=== PATIENT | male | born 1990 | race Caucasian/White ===

== ENCOUNTER 2017-09-29 16:51 | Emergency (ER) | payer OTHER ==
[2017-09-29 17:37] VITALS: TEMP 97.2; BMI 21.4
[2017-09-29] MEDS ORDERED: SODIUM CHLORIDE 1,000 ML IV STA ×2 (17:52→19:21)
--- NOTE | 2017-09-29 18:09 | PDOC ---
History of Present Illness - General History Source: Patient, Family Exam Limitations: No Limitations - History of Present Illness Initial Comments: 09/29/17 18:41 The patient is a 27 year old male with past medical history of ADHD and depression who presents to the ED with complaints of lightheadedness for two days. The patient states his lightheadedness is constant but is much worse when he sits or stands. He reports he is very fatigued and his urine is concentrated. He reports that his apartment is very warm and he went to walk to [employer] this evening, however when he got there he had a pre-syncopal episode and nearly lost consciousness. The patient denies any headache or focal weakness. He denies any fever, chills, nausea, vomiting, diarrhea, cough, SOB, CP, or urinary symptoms. Past surgical hx: None Allergies: Sulfa Social hx: Denies any drug or alcohol use. Reports occasional Vape usage. <Candie Oconnor - Last Filed: 09/29/17 18:52> - General History Source: Patient, Family Exam Limitations: No Limitations <Howard Ray - Last Filed: 09/29/17 19:51> - General Chief Complaint: Lightheaded Stated Complaint: ABD/DIZZY Time Seen by Provider: 09/29/17 17:27 Past History <Candie Oconnor - Last Filed: 09/29/17 18:52> - Past Medical History COPD: No GI Disorders: Yes (ACID REFLUX) - Surgical History Abdominal Surgery: Yes (HERNIA REPAIR) - Suicide/Smoking/Psychosocial Hx Smoking Status: Yes Smoking History: Never smoked Have you smoked in the past 12 months: No Number of Cigarettes Smoked Daily: 0 Information on smoking cessation initiated: No Hx Alcohol Use: No Drug/Substance Use Hx: No Substance Use Type: None <Howard Ray - Last Filed: 09/29/17 19:51> - Past Medical History Allergies/Adverse Reactions: Allergies Allergy/AdvReac Type Severity Reaction Status Date / Time Sulfa (Sulfonamide Allergy Verified 09/29/17 17:37 Antibiotics) [Sulfa(Sulfonamide Antibiotics)] Home Medications: Ambulatory Orders Aripiprazole [Abilify] 20 mg PO DAILY 05/16/12 Escitalopram Oxalate [Lexapro] 20 mg PO DAILY 05/16/12 Methylphenidate HCl [Concerta] 36 mg PO BID 05/16/12 Naproxen Sodium [Anaprox Ds] 550 mg PO BID PRN #20 tablet 02/24/13 Omeprazole [Prilosec (RX)] 20 mg PO DAILY 02/24/13 Tizanidine HCl [Zanaflex] 2 mg PO TID PRN #20 tablet 02/24/13 Review of Systems - Review of Systems Able to Perform ROS?: Yes Comments:: 09/29/17 18:42 GENERAL/CONSTITUTIONAL: Present: fatigue No fever or chills. HEAD, EYES, EARS, NOSE AND THROAT: No change in vision. No ear pain or discharge. No sore throat. CARDIOVASCULAR: No chest pain or shortness of breath. RESPIRATORY: No cough, wheezing, or hemoptysis. GASTROINTESTINAL: No nausea, vomiting, diarrhea or constipation. GENITOURINARY: Present: concentrated urine No dysuria, frequency. MUSCULOSKELETAL: No joint or muscle swelling or pain. No neck or back pain. SKIN: No rash NEUROLOGIC: Present: lightheadedness No headache, vertigo, loss of consciousness, or change in strength/sensation. ENDOCRINE: No increased thirst. No abnormal weight change. HEMATOLOGIC/LYMPHATIC: No anemia, easy bleeding, or history of blood clots. ALLERGIC/IMMUNOLOGIC: No hives or skin allergy. All Other Systems: Reviewed and Negative <Candie Oconnor - Last Filed: 09/29/17 18:52> *Physical Exam - Vital Signs Last Vital Signs Temp Pulse Resp BP Pulse Ox 97.2 F L 75 15 90/61 100 09/29/17 16:55 09/29/17 16:55 09/29/17 16:55 09/29/17 16:55 09/29/17 16:55 - Physical Exam Comments: 09/29/17 18:43 GENERAL: Awake, alert, and fully oriented, in no acute distress HEAD: No signs of trauma EYES: PERRLA, EOMI, sclera anicteric, conjunctiva clear ENT: Dry mucous membranes, Auricles normal inspection, hearing grossly normal, nares patent, oropharynx clear without exudates. NECK: Normal ROM, supple, no lymphadenopathy, JVD, or masses LUNGS: Breath sounds equal, clear to auscultation bilaterally. No wheezes, and no crackles HEART: Regular rate and rhythm, normal S1 and S2, no murmurs, rubs or gallops ABDOMEN: Soft, nontender, normoactive bowel sounds. No guarding, no rebound. No masses EXTREMITIES: Normal range of motion, no edema. No clubbing or cyanosis. No cords, erythema, or tenderness NEUROLOGICAL: Cranial nerves II through XII grossly intact. Normal speech, normal gait SKIN: Warm, Dry, normal turgor, no rashes or lesions noted. <TimmylizzyCandie - Last Filed: 09/29/17 18:52> - Vital Signs Last Vital Signs Temp Pulse Resp BP Pulse Ox 97.2 F L 75 15 90/61 100 09/29/17 16:55 09/29/17 16:55 09/29/17 16:55 09/29/17 16:55 09/29/17 16:55 <Howard Ray - Last Filed: 09/29/17 19:51> Heart Score/ECG Review #1 ECG reviewed & interpreted by me at: 18:00 09/29/17 18:05 NSR 82, no std/rayne, TWI III, normal axis, normal intervals, QTC 420 msec <Howard Ray - Last Filed: 09/29/17 19:51> ED Treatment Course - LABORATORY CBC & Chemistry Diagram: 09/29/17 18:10 09/29/17 18:10 - ADDITIONAL ORDERS Additional order review: 09/29/17 09/29/17 18:10 17:35 RBC 5.21 Cancelled MCV 82.0 Cancelled MCHC 34.6 Cancelled RDW 13.4 Cancelled MPV 8.4 Cancelled Neutrophils % 82.1 Cancelled Lymphocytes % 8.7 Cancelled Monocytes % 8.8 Cancelled Eosinophils % 0.0 Cancelled Basophils % 0.4 Cancelled - Medications Given in the ED: ED Medications Discontinued Medications Generic Name Dose Route Start Last Admin Trade Name Freq PRN Reason Stop Dose Admin Sodium Chloride 1,000 mls @ 2,000 mls/hr 09/29/17 17:52 09/29/17 18:20 Normal Saline - IV 09/29/17 18:21 2,000 mls/hr ASDIR STA Administration <maidalizzyCandie - Last Filed: 09/29/17 18:52> - LABORATORY CBC & Chemistry Diagram: 09/29/17 18:10 09/29/17 18:10 - ADDITIONAL ORDERS Additional order review: 09/29/17 17:35 RBC Cancelled MCV Cancelled MCHC Cancelled RDW Cancelled MPV Cancelled Neutrophils % Cancelled Lymphocytes % Cancelled Monocytes % Cancelled Eosinophils % Cancelled Basophils % Cancelled <Howard Ray - Last Filed: 09/29/17 19:51> Medical Decision Making - Medical Decision Making 09/29/17 19:46 A portion of this note was documented by scribe services under my direction. I have reviewed the details of the note, within reason, and agree with the documentation with the following case summary and management plan written by me. Patient treated in the ED. Nursing notes are reviewed and incorporated into the medical decision-making. Vital signs reviewed. Peripheral IV access obtained by the nurse, laboratory studies are drawn and sent, reviewed and interpreted by myself. Vital Signs Temp Pulse Resp BP Pulse Ox 97.2 F L 75 15 90/61 100 09/29/17 16:55 09/29/17 16:55 09/29/17 16:55 09/29/17 16:55 09/29/17 16:55 27-year-old male with history of chronic neck pain with neuropathy and gabapentin presents with lightheadedness. Patient reports that he was well yesterday morning. Yesterday evening, developed lightheadedness worsened with standing up and better with lying down. States that he feels dehydrated. Thinks he is drinking enough fluids but denies recent illnesses, fevers, chills, cough , vomiting, diarrhea. Denies dysuria. Denies any drug use. Patient never syncopized or loss consciousness. I suspect this is likely orthostatic given the patient feels lightheaded standing up. Never had chest pain shortness of breath. EKG is reassuring blood work is reassuring. Patient was given 2 L IV fluids with significant improvement of symptoms. She'll go home with her dad. Discharge diagnosis: Dehydration I discussed the physical exam findings, ancillary test results and final diagnoses with the patient. I answered all of the patient's questions. The patient was satisfied with the care received and felt comfortable with the discharge plan and treatment plan. The patient will call their primary care physician within 24 hours to arrange follow-up and will return to the Emergency Department with any new, persistant or worsening symptoms. <Howard Ray - Last Filed: 09/29/17 19:51> *DC/Admit/Observation/Transfer - Attestations Scribe Attestion: 09/29/17 18:43 Documentation prepared by Candie Oconnor, acting as medical resident for Howard Ray MD. <Candie Oconnor - Last Filed: 09/29/17 18:52> - Discharge Dispostion Admit: No <Howard Ray - Last Filed: 09/29/17 19:51> Diagnosis at time of Disposition: Dehydration - Discharge Dispostion Disposition: HOME Condition at time of disposition: Improved - Referrals Referrals: Jeffery Baig MD [Primary Care Provider] - - Patient Instructions Printed Discharge Instructions: DI for Dehydration -- Adult Additional Instructions: Drink plenty of fluids and rest. Follow up with your doctor. - Post Discharge Activity Forms/Work/School Notes: Back to Work
[2017-09-29 18:23] LABS: BASOPHIL 0.4 % (0-2.0); MCH 28.4 pg (25.7-33.7); MCHC 34.6 g/dl (32.0-35.9); MEAN PLT VOLUME 8.4 fl (7.5-11.1); NEUTROPHILS 82.1 % (42.8-82.8); PLATELET COUNT 140 K/MM3 (134-434); RDW 13.4 % (11.9-15.9); WHITE BLOOD COUNT 6.5 K/mm3 (4.0-10.0)
[2017-09-29 18:50] LABS: ALBUMIN 3.6 g/dl (3.4-5.0); ANION GAP 9 (8-16); BILIRUBIN,TOTAL 0.6 mg/dL (0.2-1.0); CALCIUM 7.9 mg/dL (8.5-10.1); CO2 26 mmol/L (21-32); GLUCOSE,RANDOM 103 mg/dL (74-106); SGPT/ALT 30 U/L (12-78); TOT PROT 7.2 g/dl (6.4-8.2)
[2017-09-29 18:53] LABS: ALK PHOS 48 U/L (45-117); CPK 81 IU/L (39-308); TROPONIN I < 0.02 ng/ml (0.00-0.05)
[2017-09-29 18:55] LABS: MAGNESIUM 1.8 mg/dL (1.8-2.4); SGOT/AST 19 U/L (15-37)
[2017-09-29 20:06] VITALS: BP 138/83; PULSE 78
--- NOTE | 2017-10-01 14:38 | EKG ---
Test Reason : Blood Pressure : / mmHG Vent. Rate : 082 BPM Atrial Rate : 082 BPM P-R Int : 168 ms QRS Dur : 104 ms QT Int : 360 ms P-R-T Axes : 030 011 016 degrees QTc Int : 420 ms NORMAL SINUS RHYTHM POSSIBLE LEFT ATRIAL ENLARGEMENT BORDERLINE ECG NO PREVIOUS ECGS AVAILABLE Confirmed by MARI NERI MD ([id number]) on 10/01/2017 2:38:40 PM Referred By: Confirmed By:MARI NERI MD
== END 2017-09-29 20:06 | disposition home or self-care (01) ==
LOC: JER 16:51
PROC: 3E0337Z Introduction of Electrolytic and Water Balance Substance into Peripheral Vein, Percutaneous Approach (ICD-10-PCS; principal; 2017-09-29)
DX: E86.0 Dehydration (principal); F90.9 Attention-deficit hyperactivity disorder, unspecified type; F32.9 Major depressive disorder, single episode, unspecified; K21.9 Gastro-esophageal reflux disease without esophagitis
CPT/HCPCS: 36415; 80053; 82550; 83735; 84443; 84484; 85025; 93005; 93010; 96360; 96361; 99283-25

== ENCOUNTER 2017-11-19 19:06 | Emergency (ER) | payer OTHER ==
--- NOTE | 2017-11-19 19:17 | PDOC ---
History of Present Illness - General History Source: Patient Exam Limitations: No Limitations - History of Present Illness Initial Comments: 11/19/17 20:50 The patient is a 27 year old male with no significant past medical history who presents to the ED with complaints of neck pain since earlier today. The patient reports a sudden onset of left sided neck pain when he woke up with morning. He states his neck pain radiates down his left shoulder, left arm, and onto his left hand. Patient also reports a tingling like sensation on his left fingertips. Patient has a hx of knee injury (10 years ago) and nerve damage secondary to playing football in high school. Patient is currently prescribed gabapentin for right sided neck pain, thought to be neurogenic origin, from PCP. Denies fever or chills. Denies chest pain or shortness of breath. Denies abdominal pain, nausea, vomiting, or diarrhea. Denies headache. Denies any other symptoms. PCP: Dr. Huber <Raghavendra Granda - Last Filed: 11/19/17 21:07> <Lorena Pierre - Last Filed: 11/20/17 03:14> - General Chief Complaint: Pain, Acute Stated Complaint: WOKE UP WITH LEFT ARM PAIN, NECK PAIN Time Seen by Provider: 11/19/17 19:14 Past History <Raghavendra Granda - Last Filed: 11/19/17 21:07> - Past Medical History COPD: No GI Disorders: Yes (ACID REFLUX) - Surgical History Abdominal Surgery: Yes (HERNIA REPAIR) - Suicide/Smoking/Psychosocial Hx Smoking Status: Yes Smoking History: Never smoked Have you smoked in the past 12 months: No Number of Cigarettes Smoked Daily: 0 Hx Alcohol Use: No Drug/Substance Use Hx: No Substance Use Type: None <Lorena Pierre - Last Filed: 11/20/17 03:14> - Past Medical History Allergies/Adverse Reactions: Allergies Allergy/AdvReac Type Severity Reaction Status Date / Time Sulfa (Sulfonamide Allergy Verified 09/29/17 17:37 Antibiotics) [Sulfa(Sulfonamide Antibiotics)] Home Medications: Ambulatory Orders Clonazepam [Klonopin] 0.5 mg PO PRN 11/19/17 Cyclobenzaprine HCl [Flexeril 10 mg] 10 mg PO BID PRN #20 tablet 11/19/17 Diclofenac Sodium [Voltaren -] 75 mg PO BID PRN #20 tablet. 11/19/17 Escitalopram Oxalate [Lexapro -] 20 mg PO DAILY 11/19/17 Gabapentin [Neurontin -] 300 mg PO Q8H 11/19/17 Omeprazole 20 mg PO DAILY 11/19/17 Zolpidem Tartrate [Ambien] 10 mg PO HS 11/19/17 Review of Systems - Review of Systems Able to Perform ROS?: Yes Comments:: 11/19/17 20:50 CONSTITUTIONAL: Absent: fever, chills, diaphoresis, generalized weakness, malaise, loss of appetite HEENT: Absent: rhinorrhea, nasal congestion, throat pain, throat swelling, difficulty swallowing, mouth swelling, ear pain, eye pain, visual Changes CARDIOVASCULAR: Absent: chest pain, syncope, palpitations, irregular heart rate, lightheadedness , peripheral edema RESPIRATORY: Absent: cough, shortness of breath, dyspnea with exertion, orthopnea, wheezing, stridor, hemoptysis GASTROINTESTINAL: Absent: abdominal pain, abdominal distension, nausea, vomiting, diarrhea, constipation, melena, hematochezia GENITOURINARY: Absent: dysuria, frequency, urgency, hesitancy, hematuria, flank pain, genital pain MUSCULOSKELETAL: + neck pain, arm pain, shoulder pain Absent: joint swelling SKIN: Absent: rash, itching, pallor HEMATOLOGIC/IMMUNOLOGIC: Absent: easy bleeding, easy bruising, lymphadenopathy, frequent infections ENDOCRINE: Absent: unexplained weight gain, unexplained weight loss, heat intolerance, cold intolerance NEUROLOGIC: + tingling in fingertips Absent: headache, focal weakness or paresthesias, dizziness, unsteady gait, seizure, mental status changes, bladder or bowel incontinence PSYCHIATRIC: Absent: anxiety, depression, suicidal or homicidal ideation, hallucinations. All Other Systems: Reviewed and Negative <Raghavendra Granda - Last Filed: 11/19/17 21:07> *Physical Exam - Vital Signs Last Vital Signs Temp Pulse Resp BP Pulse Ox 98 F 70 16 143/88 97 11/19/17 19:14 11/19/17 19:14 11/19/17 19:14 11/19/17 19:14 11/19/17 19:14 - Physical Exam Comments: 11/19/17 20:50 GENERAL: The patient is awake, alert, and fully oriented, in no acute distress. HEAD: Normal with no signs of trauma. EYES: Pupils equal, round and reactive to light, extraocular movements intact, sclera anicteric, conjunctiva clear with no pallor. ENT: Ears normal, nares patent, oropharynx clear without exudates. Moist mucous membranes. NECK: + moderate tenderness of the left cervical paraspinal muscles. Moderate tenderness of the left trapezius muscle. no vertebral body tenderness or deformity. Normal range of motion, without lymphadenopathy, JVD, or masses. LUNGS: Breath sounds equal, clear to auscultation bilaterally. No wheeze/ crackles. HEART: Regular rate and rhythm, normal S1 and S2 without murmur or rub. ABDOMEN: Soft/nontender/nondistended. BS wnl. No guarding or rebound. No palpable masses. No hepatosplenomegaly. EXTREMITIES: Normal range of motion, no edema. No clubbing or cyanosis. No cords, erythema, or tenderness. 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 Cranial nerves II through XII grossly intact. Normal speech, normal gait. PSYCH: Normal mood, normal affect. SKIN: Warm, Dry, normal turgor, no rashes or lesions noted. <Raghavendra Granda - Last Filed: 11/19/17 21:07> ED Treatment Course - Medications Given in the ED: ED Medications Discontinued Medications Generic Name Dose Route Start Last Admin Trade Name Freq PRN Reason Stop Dose Admin Ketorolac Tromethamine 60 mg 11/19/17 20:43 11/19/17 20:48 Toradol Injection - IM 11/19/17 20:44 60 mg ONCE ONE Administration <Raghavendra Granda - Last Filed: 11/19/17 21:07> Medical Decision Making - Medical Decision Making Documentation has been prepared under my direction and personally reviewed by me in its entirety. I attest that this documented accurately reflects all work, treatment, procedures and medical decision making performed by me. As noted above, this 27-year-old man with a history of right sided neck pain ( treated with gabapentin)/anxiety depression/GERD presents with 1 day history of left-sided neck pain/left arm pain and numbness of distal phalanges (palmar side ) of all 5 fingers of the left hand. No history of trauma/falling or overuse. 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 Patient states that he does not know of any previous MRI studies but was aware that he may have neck issues secondary to playing football in high school. No chest pain/shortness of breath/palpitations. Patient has no cough or fever/ chills. Exam as noted. Clinical presentation most consistent with neurogenic pain in left side of neck and left arm, likely related to chronic overuse. The patient has follow-up with his PCP () tomorrow. Meanwhile, he will be given Toradol 60 mg IM. He states that cyclobenzaprine has been helpful with his neurogenic pain in the past and he will be given Flexeril 10 mg now. Prescriptions for diclofenac 75 mg twice a day and Flexeril 10 mg twice a day will be sent to pharmacy. He should not work for the next 2 days he is scheduled to work (tomorrow and on the ). He should return to the ER if he has symptoms become severe, otherwise she should follow-up with his PCP tomorrow. <Lorena Pierre - Last Filed: 11/20/17 03:14> *DC/Admit/Observation/Transfer - Attestations Scribe Attestion: 11/19/17 20:50 Documentation prepared by Raghavendra Granda, acting as medical referral coordinator for Lorena Pierre MD <Raghavendra Granda - Last Filed: 11/19/17 21:07> <Lorena Pierre - Last Filed: 11/20/17 03:14> Diagnosis at time of Disposition: Cervical radiculopathy - Discharge Dispostion Disposition: HOME Condition at time of disposition: Stable - Prescriptions Prescriptions: Cyclobenzaprine HCl [Flexeril 10 mg] 10 mg PO BID PRN #20 tablet PRN Reason: Muscle Spasms Diclofenac Sodium [Voltaren -] 75 mg PO BID PRN #20 tablet.dr [id number] Reason: Moderate Pain - Referrals Referrals: Enmanuel Huber MD [Primary Care Provider] - - Patient Instructions Printed Discharge Instructions: DI for Cervical Radiculopathy Additional Instructions: Continue Neurontin as prescribed Diclofenac 75 mg twice a day as needed (take with food) Flexeril 10 mg up to twice a day as needed for muscle spasms Hard collar as needed Follow-up with Dr. Huber tomorrow as previously arranged Return to ER if your symptoms worsen - Post Discharge Activity Forms/Work/School Notes: Back to Work
[2017-11-19 19:18] VITALS: BP 143/88; PULSE 70; TEMP 98; BMI 39.5
[2017-11-19] MEDS ORDERED: KETOROLAC TROMETHAMINE 60 MG/2 ML VIAL IM ONE (20:43)
[2017-11-19] MEDS ORDERED: KETOROLAC TROMETHAMINE 60 MG/2 ML VIAL ONE (20:44)
[2017-11-19] MEDS ORDERED: CYCLOBENZAPRINE HCL 10 MG TABLET (FP) PO ONE (21:00)
[2017-11-19] MEDS ORDERED: GABAPENTIN 300 MG CAPSULE (FP) PO ONE (21:01)
[2017-11-19] MEDS ORDERED: CYCLOBENZAPRINE HCL 10 MG TABLET (FP) ONE (21:07)
[2017-11-19] MEDS ORDERED: GABAPENTIN 300 MG CAPSULE (FP) ONE (21:07)
== END 2017-11-19 21:14 | disposition home or self-care (01) ==
LOC: FER 19:06
PROC: 3E0233Z Introduction of Anti-inflammatory into Muscle, Percutaneous Approach (ICD-10-PCS; principal; 2017-11-19)
DX: M54.12 Radiculopathy, cervical region (principal); K21.9 Gastro-esophageal reflux disease without esophagitis
CPT/HCPCS: 99281-25

== ENCOUNTER 2021-06-03 14:43 | Emergency (ER) | payer OTHER ==
[2021-06-03] MEDS ORDERED: ACETAMINOPHEN 325 MG TABLET (FP) PO ONE (14:49)
[2021-06-03 15:01] VITALS: BP 136/96; PULSE 81; TEMP 98.1; BMI 51.8
[2021-06-03] MEDS ORDERED: ACETAMINOPHEN 325 MG TABLET (FP) ONE (15:26)
== END 2021-06-03 16:06 | disposition home or self-care (01) ==
LOC: FER 14:43
DX: M54.2 Cervicalgia (principal)
CPT/HCPCS: 72125-TC; 99284-25

== ENCOUNTER 2024-04-15 14:29 | Emergency (ER) | payer OTHER ==
[2024-04-15] MEDS ORDERED: ONDANSETRON 4 MG/2 ML VIAL IVPUSH ONE (14:56)
[2024-04-15] MEDS ORDERED: SODIUM CHLORIDE 0.9% 500 ML INFUS.BAG IV ONE (14:56)
[2024-04-15] MEDS ORDERED: ACETAMINOPHEN 1000 MG/100 ML BAG IVPB ONE (14:56)
[2024-04-15 15:09] VITALS: BP 178/98; PULSE 94; RESP 18; TEMP 97.4; BMI 52.7
[2024-04-15 15:21] LABS: HEMATOCRIT 44.9 % (35.4-49); HEMOGLOBIN 14.8 G/dL (11.7-16.9); MCH 27.6 pg (25.7-33.7); MCHC 32.9 g/dl (32.0-35.9); MEAN PLT VOLUME 8.4 fl (7.5-11.1); PLATELET COUNT 226.4 10^3/uL (134-434); RBC 5.35 10^6/uL (4.00-5.60); RDW 14.4 % (11.9-15.9); WHITE BLOOD COUNT 5.9 10^3/uL (4.0-10.8)
[2024-04-15 15:46] LABS: INR 0.94 (0.83-1.09); PROTHROMBIN TIME (PATIENT) 10.7 SEC (9.7-13.0)
[2024-04-15 15:48] LABS: ACTIVATED PTT 35.8 SECONDS (25.2-36.5)
[2024-04-15 15:58] LABS: ALBUMIN 4.7 g/dl (3.4-5.0); BILIRUBIN,TOTAL 0.5 mg/dl (0.2-1); CALCIUM 9.3 mg/dl (8.5-10.1); TOT PROT 7.6 g/dl (6.4-8.2)
[2024-04-15] MEDS ORDERED: ACETAMINOPHEN INJECTION 100 ML IVPB ONE (15:58)
[2024-04-15] MEDS ORDERED: ONDANSETRON 4 MG/2 ML VIAL ONE (15:58)
[2024-04-15 16:00] LABS: EPITHELIAL CELLS 0-5 /hpf; URINE MUCUS FEW
[2024-04-15] MEDS ORDERED: LOSARTAN POTASSIUM 50 MG TABLET PO ONE (16:16)
[2024-04-15 16:33] LABS: PLATELET ESTIMATE ADEQUATE
== END 2024-04-15 17:10 | disposition home or self-care (01) ==
LOC: FER 14:29
DX: R10.31 Right lower quadrant pain (principal); R19.7 Diarrhea, unspecified; R11.0 Nausea
CPT/HCPCS: 36415; 74177-TC; 80053; 81003; 81015; 83690; 85027; 85610; 85730; 86850; 86900; 86901; 87086; 99285-25; Q9967